=== PATIENT | male | born 1945 | race Caucasian/White ===

== ENCOUNTER 2017-10-17 16:24 | Inpatient (IN) | payer OTHER ==
[~2017-10-17] VITALS: Ht 167.6 cm; Wt 78.8 kg
[~2017-10-17 16:24] MED LIST: COUMADIN,JANTOVE4 MG PO; GLUCOPHAGE500 MG PO; LANOXIN125 MCG PO; LASIX40 MG PO; Lopressor PO; NOHOMEMEDS; ZESTRIL,PRINIVI10 M1 PO
[2017-10-17 17:42] LABS: BASOPHIL (%) 0.3 % (0-1); EOSINOPHIL (%) 4.8 % (0-5); EOSINOPHIL COUNT 0.3 K/uL (0-0.3); HEMATOCRIT 33.3 % (38.0-50.0); HEMOGLOBIN 11.2 G/DL (12.5-16.6); IMMATURE GRANULOCYTE (%) 0.3 % (0.0-0.7); LYMPHOCYTE COUNT 1.1 K/uL (1.0-2.8); MCHC 33.6 G/DL (30.0-36.0); MCV 95.1 FL (86-99); MONOCYTE (%) 7.2 % (3-12); MONOCYTE COUNT 0.4 K/uL (0-0.8); NEUTROPHIL (%) 68.4 % (45-76); PLATELET COUNT 77 K/uL (156-360); RBC DIS.WIDTH-CV 15.6 % (11.8-14.6); RBC DIS.WIDTH-SD 53.6 % (39-53); WHITE BLOOD COUNT 5.8 K/uL (4.1-10.2)
[2017-10-17 17:51] LABS: INTER. NORMALIZED RATIO 3.2; PTT 54.1 SEC (25-37)
[2017-10-17 18:11] LABS: CHLORIDE 101 MEQ/L (99-109); POTASSIUM 4.5 MEQ/L (3.7-5.4); SODIUM 128 MEQ/L (136-147)
[2017-10-17 18:16] LABS: CREATININE 1.7 MG/DL (0.6-1.3); GFR ESTIMATE (CALCULATED) 43 mL/min/ (58.99-99999); GLUCOSE 99 mg/dL (70-99); UREA NITROGEN (BUN) 63 mg/dL (9-23)
[2017-10-17 18:37] LABS: TROP-I INTERPRETATION NEGATIVE; TROPONIN-I 0.03 ng/mL (0.0-0.30)
[2017-10-17 18:48] LABS: DIGOXIN 0.8 ng/mL (0.8-2.0)
[2017-10-17 19:24] LABS: APPEARANCE CLEAR ((CLEAR)); BILIRUBIN NEGATIVE; BLOOD SMALL; COLOR YELLOW ((YELLOW)); GLUCOSE (STRIP) NEGATIVE; KETONES NEGATIVE; LEUKOCYTES NEGATIVE; NITRITE NEGATIVE; PROTEIN (STRIP) NEGATIVE
[2017-10-17 19:41] LABS: BACTERIA RARE /HPF; EPITHELIAL CELLS NONE SEEN /HPF; HYALINE CASTS 0-5 /LPF; MUCUS TRACE /LPF; RED BLOOD CELLS 0-5 /HPF (0-5); UCUL ADDED? NO; WHITE BLOOD CELLS 0-5 /HPF (0-5)
[2017-10-17] MEDS ORDERED: MICRO-K10 ME2 PO (21:20)
[2017-10-17] MEDS ORDERED: WARFARIN SODIUM2 MG PO (21:20)
[2017-10-17] MEDS ORDERED: LISINOPRIL10 MG PO (21:24)
[2017-10-17] MEDS ORDERED: ALBUTEROL2.5 MG/3 M IH (21:26)
[2017-10-17] MEDS ORDERED: METOPROLOL TAR100 MG PO (21:29)
[2017-10-17] MEDS ORDERED: FUROSEMIDE20 MG PO (21:32)
[2017-10-17] MEDS ORDERED: DIGOXIN125 MCG PO (21:36)
[2017-10-17] MEDS ORDERED: PRAVASTATIN SOD20 MG PO (21:36)
[2017-10-17 22:23] LABS: HDL CHOLESTEROL 19 MG/DL (Desirable>=40); LDL CHOLESTEROL 25 mg/dL (Desirable<100); NON-HDL CHOLESTEROL 34 mg/dL (Desirable<160); TOTAL CHOLESTEROL 53 mg/dL (Desirable<200); TRIGLYCERIDES 47 MG/DL (Normal: <150)
[2017-10-17 23:31] VITALS: BP 95/45
[2017-10-18 01:06] LABS: TROP-I INTERPRETATION NEGATIVE; TROPONIN-I 0.03 ng/mL (0.0-0.30)
[2017-10-18 03:09] VITALS: BP 92/51
[2017-10-18 06:55] LABS: TROP-I INTERPRETATION NEGATIVE; TROPONIN-I 0.02 ng/mL (0.0-0.30)
[2017-10-18 06:55] LABS: HEMATOCRIT 32.2 % (38.0-50.0); HEMOGLOBIN 10.8 G/DL (12.5-16.6); MCHC 33.5 G/DL (30.0-36.0); MCV 95.5 FL (86-99); RBC DIS.WIDTH-CV 15.6 % (11.8-14.6); RBC DIS.WIDTH-SD 53.6 % (39-53); RED BLOOD COUNT 3.37 M/uL (4.00-5.50); WHITE BLOOD COUNT 4.8 K/uL (4.1-10.2)
[2017-10-18 06:56] LABS: PLATELET CLUMPS PRESENT - PLATELET COUNTS APPEARS DECREASED
[2017-10-18 06:57] LABS: PLATELET COUNT UNABLE TO REPORT K/uL (156-360)
[2017-10-18 08:00] VITALS: BP 90/53
[2017-10-18 09:24] LABS: CHLORIDE 104 MEQ/L (99-109); CREATININE 1.5 MG/DL (0.6-1.3); GFR ESTIMATE (CALCULATED) 49 mL/min/ (58.99-99999); GLUCOSE 120 mg/dL (70-99); POTASSIUM 4.5 MEQ/L (3.7-5.4); SODIUM 131 MEQ/L (136-147); UREA NITROGEN (BUN) 57 mg/dL (9-23)
[2017-10-18 09:53] LABS: SITE RR
[2017-10-18 09:54] LABS: COMMENTS - BLOOD GASES NAC+; FI02 21 %; PCO2 31 mm Hg (35-45); PO2 53 mm Hg (80-100); TOTAL RESP RATE 14 resp/min; pH 7.31 (7.35-7.45)
[2017-10-18 09:55] LABS: BASE EXCESS -9.6 mEq/L (-3 to +3); CARBOXY HGB 3.9 % (0-5); METHEMOGLOBIN 0.7 % (0-1.5)
[2017-10-18 09:56] LABS: BICARBONATE 15.6 mEq/L (22-26)
[2017-10-18 10:27] VITALS: BP 77/48
[2017-10-18 11:21] LABS: HEMOGLOBIN A1c (GLYCOHEMOGLOB) 5.1 % (Below 5.7)
[2017-10-18 12:00] VITALS: BP 75/39
[2017-10-18 14:29] VITALS: BP 75/35
[2017-10-18 16:31] VITALS: BP 69/31
[2017-10-18 16:58] LABS: BASOPHIL (%) 0.2 % (0-1); EOSINOPHIL (%) 0.6 % (0-5); IMMATURE GRANULOCYTE (%) 0.6 % (0.0-0.7); LYMPHOCYTE (%) 10.5 % (15-42); LYMPHOCYTE COUNT 0.5 K/uL (1.0-2.8); MONOCYTE COUNT 0.3 K/uL (0-0.8); NEUTROPHIL (%) 82.1 % (45-76)
[2017-10-19 07:58] VITALS: BP 92/47
[2017-10-19 13:05] LABS: HEMATOCRIT 32.6 % (38.0-50.0); HEMOGLOBIN 10.7 G/DL (12.5-16.6); MCH 31.8 PG (29.0-34.0); MCHC 32.8 G/DL (30.0-36.0); MCV 96.7 FL (86-99); RBC DIS.WIDTH-CV 15.9 % (11.8-14.6); RBC DIS.WIDTH-SD 55.8 % (39-53); RED BLOOD COUNT 3.37 M/uL (4.00-5.50); WHITE BLOOD COUNT 6.3 K/uL (4.1-10.2)
[2017-10-19 13:12] LABS: PLATELET COUNT 78 K/uL (156-360)
[2017-10-19 13:34] LABS: CHLORIDE 108 MEQ/L (99-109); CREATININE 1.4 MG/DL (0.6-1.3); GFR ESTIMATE (CALCULATED) 53 mL/min/ (58.99-99999); GLUCOSE 177 mg/dL (70-99); POTASSIUM 4.1 MEQ/L (3.7-5.4); SODIUM 138 MEQ/L (136-147); UREA NITROGEN (BUN) 58 mg/dL (9-23)
[2017-10-19 14:15] LABS: STOOL OCCULT BLD 1ST SPECIMEN POSITIVE
[2017-10-19 15:20] VITALS: BP 108/55
[2017-10-19 16:27] LABS: INTER. NORMALIZED RATIO 4.8; PTT 51.4 SEC (25-37)
[2017-10-19 18:30] LABS: HEMOGLOBIN 10.4 G/DL (12.5-16.6); MCV 96.9 FL (86-99)
[2017-10-19 19:20] VITALS: BP 96/47
[2017-10-19 23:23] VITALS: BP 103/51
[2017-10-20 02:22] LABS: HEMATOCRIT 32.9 % (38.0-50.0); HEMOGLOBIN 10.9 G/DL (12.5-16.6); MCV 97.3 FL (86-99)
[2017-10-20 03:52] VITALS: BP 102/54
[2017-10-20 07:44] VITALS: BP 102/63
[2017-10-20 09:44] LABS: HEMATOCRIT 33.3 % (38.0-50.0); MCH 32.3 PG (29.0-34.0); MCV 97.7 FL (86-99); PLATELET COUNT 58 K/uL (156-360); RBC DIS.WIDTH-CV 16.3 % (11.8-14.6); RED BLOOD COUNT 3.41 M/uL (4.00-5.50); WHITE BLOOD COUNT 4.2 K/uL (4.1-10.2)
[2017-10-20 10:26] LABS: CHLORIDE 112 MEQ/L (99-109); CREATININE 1.3 MG/DL (0.6-1.3); GFR ESTIMATE (CALCULATED) 58 mL/min/ (58.99-99999); GLUCOSE 167 mg/dL (70-99); POTASSIUM 4.6 MEQ/L (3.7-5.4); SODIUM 139 MEQ/L (136-147); UREA NITROGEN (BUN) 46 mg/dL (9-23)
[2017-10-20 11:11] LABS: INTER. NORMALIZED RATIO 1.9
[2017-10-20 15:56] VITALS: BP 102/61
[2017-10-20 18:21] LABS: HEMATOCRIT 29.4 % (38.0-50.0); HEMOGLOBIN 9.2 G/DL (12.5-16.6)
[2017-10-20 18:33] LABS: MCV 101.7 FL (86-99)
[2017-10-20 19:34] VITALS: BP 117/53
[2017-10-21] VITALS (8 sets, daily range): BP systolic 96–136; BP diastolic 55–81
[2017-10-21 06:44] LABS: INTER. NORMALIZED RATIO 1.5
[2017-10-22 04:18] VITALS: BP 134/75
[2017-10-22 05:59] LABS: CHLORIDE 113 MEQ/L (99-109); CREATININE 1.3 MG/DL (0.6-1.3); GFR ESTIMATE (CALCULATED) 58 mL/min/ (58.99-99999); GLUCOSE 164 mg/dL (70-99); POTASSIUM 4.1 MEQ/L (3.7-5.4); SODIUM 145 MEQ/L (136-147); UREA NITROGEN (BUN) 41 mg/dL (9-23)
[2017-10-22 07:38] LABS: INTER. NORMALIZED RATIO 1.5
[2017-10-22 08:45] VITALS: BP 127/79
[2017-10-22 11:42] VITALS: BP 140/77
[2017-10-22 15:50] VITALS: BP 140/65
[2017-10-22 16:08] LABS: BASOPHIL (%) 0 % (0-1); EOSINOPHIL (%) 0 % (0-5); HEMATOCRIT 29.8 % (38.0-50.0); HEMOGLOBIN 9.4 G/DL (12.5-16.6); IMMATURE GRANULOCYTE (%) 0.5 % (0.0-0.7); LYMPHOCYTE (%) 8.2 % (15-42); LYMPHOCYTE COUNT 0.3 K/uL (1.0-2.8); MCH 32.2 PG (29.0-34.0); MCHC 31.5 G/DL (30.0-36.0); MCV 102.1 FL (86-99); MONOCYTE (%) 4.4 % (3-12); MONOCYTE COUNT 0.2 K/uL (0-0.8); NEUTROPHIL (%) 86.9 % (45-76); NEUTROPHIL COUNT 3.2 K/uL (1.8-6.4); PLATELET COUNT 63 K/uL (156-360); RBC DIS.WIDTH-CV 16.7 % (11.8-14.6); RBC DIS.WIDTH-SD 61.8 % (39-53); RED BLOOD COUNT 2.92 M/uL (4.00-5.50); WHITE BLOOD COUNT 3.7 K/uL (4.1-10.2)
[2017-10-22 19:03] VITALS: BP 138/85
[2017-10-22 23:11] VITALS: BP 147/87
[2017-10-23 04:39] VITALS: BP 137/85
[2017-10-23 05:33] LABS: HEMATOCRIT 30.3 % (38.0-50.0); HEMOGLOBIN 9.3 G/DL (12.5-16.6); MCH 31.3 PG (29.0-34.0); MCHC 30.7 G/DL (30.0-36.0); PLATELET COUNT 60 K/uL (156-360); RBC DIS.WIDTH-CV 16.1 % (11.8-14.6); RBC DIS.WIDTH-SD 60.5 % (39-53); RED BLOOD COUNT 2.97 M/uL (4.00-5.50); WHITE BLOOD COUNT 4.1 K/uL (4.1-10.2)
[2017-10-23 05:45] LABS: INTER. NORMALIZED RATIO 1.6
[2017-10-23 06:00] LABS: CHLORIDE 112 MEQ/L (99-109); CREATININE 1.5 MG/DL (0.6-1.3); GFR ESTIMATE (CALCULATED) 49 mL/min/ (58.99-99999); GLUCOSE 162 mg/dL (70-99); POTASSIUM 4.1 MEQ/L (3.7-5.4); SODIUM 147 MEQ/L (136-147); UREA NITROGEN (BUN) 48 mg/dL (9-23)
[2017-10-23 07:36] VITALS: BP 146/71
[2017-10-23 12:30] VITALS: BP 141/78
[2017-10-23 15:52] VITALS: BP 124/56
[2017-10-23 19:43] VITALS: BP 141/75
[2017-10-23 23:48] VITALS: BP 133/51
[2017-10-24 03:51] LABS: BASOPHIL (%) 0.2 % (0-1); EOSINOPHIL (%) 0.1 % (0-5); HEMATOCRIT 32.2 % (38.0-50.0); HEMOGLOBIN 10.1 G/DL (12.5-16.6); IMMATURE GRANULOCYTE (%) 4.6 % (0.0-0.7); LYMPHOCYTE (%) 7.5 % (15-42); LYMPHOCYTE COUNT 0.6 K/uL (1.0-2.8); MCH 32.6 PG (29.0-34.0); MCHC 31.4 G/DL (30.0-36.0); MCV 103.9 FL (86-99); MONOCYTE (%) 4.6 % (3-12); MONOCYTE COUNT 0.4 K/uL (0-0.8); NEUTROPHIL COUNT 7.1 K/uL (1.8-6.4); NRBC (%) 1.6 /100 WBC (0-0); RBC DIS.WIDTH-CV 16.2 % (11.8-14.6); RBC DIS.WIDTH-SD 61.1 % (39-53); WHITE BLOOD COUNT 8.6 K/uL (4.1-10.2)
[2017-10-24 03:53] LABS: PLATELET COUNT 87 K/uL (156-360)
[2017-10-24 03:59] LABS: CHLORIDE 119 mEq/L (99-109); INTER. NORMALIZED RATIO 1.9; POTASSIUM 4.5 mEq/L (3.7-5.4); SODIUM 151 mEq/L (136-147)
[2017-10-24 04:01] LABS: GLUCOSE 172 mg/dL (70-99); TOTAL PROTEIN 7.1 g/dL (6.4-8.3)
[2017-10-24 04:03] LABS: TOTAL BILIRUBIN 2.6 mg/dL (0.0-1.0)
[2017-10-24 04:05] LABS: ALKALINE PHOSPHATASE 46 IU/L (3-129); CREATININE 1.8 mg/dL (0.6-1.3); GFR ESTIMATE (CALCULATED) 40 mL/min/ (58.99-99999)
[2017-10-24 04:06] LABS: UREA NITROGEN (BUN) 56 mg/dL (9-23)
[2017-10-24 04:07] LABS: AST (GOT) 27 IU/L (2-34)
[2017-10-24 04:08] LABS: ALT (GPT) 26 IU/L (3-49)
[2017-10-24 04:59] VITALS: BP 122/56
[2017-10-24 08:18] VITALS: BP 120/60
[2017-10-24 11:04] LABS: COMMENTS - BLOOD GASES A+C+; DEVICE NRBR; FI02 100 %; O2 FLOW 15 L/MIN; SITE RR; TOTAL RESP RATE 25 resp/min
[2017-10-24 11:05] LABS: BASE EXCESS -4.8 mEq/L (-3 to +3); BICARBONATE 22.7 mEq/L (22-26); CARBOXY HGB 3.1 % (0-5); METHEMOGLOBIN 0.6 % (0-1.5); PCO2 53 mm Hg (35-45); PO2 71 mm Hg (80-100); pH 7.24 (7.35-7.45)
[2017-10-24 11:43] VITALS: BP 105/59
[2017-10-24 17:33] VITALS: BP 127/61
[2017-10-24 19:03] VITALS: BP 120/84
[2017-10-25 03:34] VITALS: BP 136/78
[2017-10-25 05:23] LABS: INTER. NORMALIZED RATIO 2.8
[2017-10-25 05:31] LABS: BASOPHIL (%) 0.2 % (0-1); EOSINOPHIL (%) 0 % (0-5); HEMATOCRIT 31.3 % (38.0-50.0); HEMOGLOBIN 9.5 G/DL (12.5-16.6); IMMATURE GRANULOCYTE (%) 3.4 % (0.0-0.7); LYMPHOCYTE (%) 2.5 % (15-42); LYMPHOCYTE COUNT 0.2 K/uL (1.0-2.8); MCH 31.9 PG (29.0-34.0); MCHC 30.4 G/DL (30.0-36.0); MONOCYTE (%) 3.3 % (3-12); MONOCYTE COUNT 0.2 K/uL (0-0.8); NEUTROPHIL (%) 90.6 % (45-76); NEUTROPHIL COUNT 5.5 K/uL (1.8-6.4); NRBC (%) 3.3 /100 WBC (0-0); RBC DIS.WIDTH-CV 16.1 % (11.8-14.6); RBC DIS.WIDTH-SD 61.6 % (39-53); RED BLOOD COUNT 2.98 M/uL (4.00-5.50); WHITE BLOOD COUNT 6.1 K/uL (4.1-10.2)
[2017-10-25 05:43] LABS: CHLORIDE 117 MEQ/L (99-109); CREATININE 1.9 MG/DL (0.6-1.3); GFR ESTIMATE (CALCULATED) 37 mL/min/ (58.99-99999); GLUCOSE 155 mg/dL (70-99); POTASSIUM 4.1 MEQ/L (3.7-5.4); SODIUM 152 MEQ/L (136-147); UREA NITROGEN (BUN) 69 mg/dL (9-23)
[2017-10-25 05:59] LABS: PLATELET COUNT 56 K/uL (156-360)
== END 2017-10-25 09:39 | DRG 853 ==
LOC: EME 16:24 → 5SOUTH 20:53 → 4EAST 20:53 → EDOF 20:53 → ENRESERV 21:00 → 5SOUTH 22:11 → CANRESERV 10-18 10:40 → ENRESERV 10-18 10:40 → 5SOUTH 10-21 11:45 → ENRESERV 10-21 11:46 → 4EAST 10-21 12:53
PROVIDERS: Emergency Medicine; Family Medicine; Hospitalist; Internal Medicine Nephrology; Physician Assistant Medical
PROC: 2Y41X5Z Packing of Nasal Region using Packing Material (ICD-10-PCS; principal; 2017-10-24)
PROC: 0W3Q7ZZ Control Bleeding in Respiratory Tract, Via Natural or Artificial Opening (ICD-10-PCS; principal; 2017-10-24)
DX: A41.9 Sepsis, unspecified organism (principal); R65.21 Severe sepsis with septic shock; J15.9 Unspecified bacterial pneumonia; J44.0 Chronic obstructive pulmonary disease with (acute) lower respiratory infection; J44.1 Chronic obstructive pulmonary disease with (acute) exacerbation; N17.0 Acute kidney failure with tubular necrosis; J96.01 Acute respiratory failure with hypoxia; J96.02 Acute respiratory failure with hypercapnia; I11.0 Hypertensive heart disease with heart failure; I50.33 Acute on chronic diastolic (congestive) heart failure; G93.41 Metabolic encephalopathy; D61.818 Other pancytopenia; E87.0 Hyperosmolality and hypernatremia; E87.1 Hypo-osmolality and hyponatremia; E87.2 Acidosis; E86.0 Dehydration; R13.10 Dysphagia, unspecified; L89.312 Pressure ulcer of right buttock, stage 2; L89.152 Pressure ulcer of sacral region, stage 2; R04.0 Epistaxis; J84.9 Interstitial pulmonary disease, unspecified; D47.2 Monoclonal gammopathy; I27.20 Pulmonary hypertension, unspecified; I48.1 Persistent atrial fibrillation; I48.2 Chronic atrial fibrillation; R47.81 Slurred speech; R29.810 Facial weakness; Z51.5 Encounter for palliative care; M25.562 Pain in left knee; Z66 Do not resuscitate; E11.9 Type 2 diabetes mellitus without complications; M19.90 Unspecified osteoarthritis, unspecified site; Z87.891 Personal history of nicotine dependence; Z79.01 Long term (current) use of anticoagulants
CPT/HCPCS: 31720; 36600; 70450; 71045; 71046; 76770; 80048; 80053; 80061; 80162; 80202; 81003; 82272; 82803; 82948; 83036; 83605; 84484; 85014; 85018; 85025; 85027; 85049; 85610; 85730; 86850; 86900; 86901; 87040; 87641; 92526 GN; 92610 GN; 93005; 93306; 94640; 94669; 94760; 94799; 99281; 99285; A6214; C1753; C9113; J0456; J0461; J0696; J1160; J1650; J1940; J2543; J2920; J2930; J3370; J3430; J7030; J7050; J7070